=== PATIENT | female | born 1960 | race Caucasian/White ===

== ENCOUNTER 2025-01-30 23:24 | Observation (INO) | payer OTHER, SELFPAY ==
[2025-01-30 23:32] VITALS: BP 180/80; PULSE 79; TEMP 36.5; O2SAT 100; BMI 22.1
[2025-01-30 23:40] VITALS: O2SAT 97
[2025-01-30 23:43] VITALS: PULSE 77
--- NOTE | 2025-01-30 23:45 | ECG_ITS ---
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
--- NOTE | 2025-01-30 23:46 | ED_ITS ---
HPI HPI - General Adult General Chief complaint: Weakness Stated complaint: abd pain Time Seen by Provider: 01/30/25 23:39 History of Present Illness HPI narrative: past history of anxiety , COPD. Had grand kids over tonight and they were loud After everyone left she felt shaky, weak and her mouth was dry. No chest or abdominal pain. No fever or chills Related Data Previous Rx's ?Medication ?Instructions ?Recorded aspirin 81 mg tablet,delayed 81 mg PO QD 30 days #30 t abs 02/01/25 release atorvastatin 40 mg tablet 40 mg PO QHS 30 days #30 tab s 02/01/25 clopidogrel 75 mg tablet 75 mg PO QD 30 days #30 tabs 02/01/25 hydroxyzine HCl 25 mg tablet 25 mg PO Q8H #90 tabs 01/16 losartan 50 mg tablet 100 mg (2 x 50 mg) PO QD 30 days 02/01/25 #60 tabs metoprolol succinate 50 mg 50 mg PO DAILY #30 tabs 01/16 tablet,extended release 24 hr (Toprol XL) spironolactone 25 mg tablet 12.5 mg (1/2 x 25 mg) PO D AILY #15 02/01/25 (Aldactone) tabs Allergies Allergy/AdvReac Type Severity Reaction Status Date / Time No Known Drug Allergies Allergy Verified 01/30/25 23:53 Opioid HPI Opioid Management Most Recent Opioid Data: Last Pain Assessment Today, 14:55 Last ORT Total Score 2 01/31/25, 04:12 Last ORT Risk Category Low Risk 01/31/25, 04:12 Review of Systems ROS Status of ROS 10 or more systems reviewed and unremark able except as noted in history and below [facility] Medical History (Updated 02/01/25 @ 12:00 by JACKIE LEWIS MD) delivery delivered ?O82 - Encounter for delivery without indication (ICD-10) Hypertension ?I10 - Essential (primary) hypertension (ICD-10) Anxiety ?F41.9 - Anxiety disorder, unspecified (ICD-10) Social History Within the past year, how often did you have a drink containing alcohol: never Within the past year, how often did you have six or more drinks on one occasion: never Score interpretation: A score less than 3 is consistent with normal alcohol consumption. Smoking status: Current some day smoker Second hand tobacco smoke exposure: Yes Non-prescribed substance use: denies use Known occupational exposures/hazards: No Highest level of school completed/degree received: some college, no degree Do you want help with school or training: No Little interest or pleasure in doing things: not at all Feeling down, depressed, or hopeless: not at all Gender Identity: female Exam Constitutional Vital Signs, click to edit/add: Last Vital Signs Temp 97.8 F 02/01/25 11:59 Pulse 70 02/01/25 14:00 Resp 20 02/01/25 11:59 BP 154/79 H 02/01/25 11:59 Pulse Ox 94 L 02/01/25 11:59 O2 Del Method Room Air 02/01/25 11:59 Common normals: average body habitus, oriented x3, no limitations, healthy appearing, alert and well nourished Eye Common normals: EOMs intact bilaterally and conjunctivae normal Respiratory Common normals: normal respiratory effort, no retractions, no use of accessory muscles and clear to auscultation bilaterally Cardio Common normals: regular rate, regular rhythm, S1 normal heart sound and S2 normal heart sound GI Common normals: Normal to inspection, nondistended, normoactive bowel sounds present, soft to palpation and non-tender Extremity Common normals: normal to inspection and full ROM Neuro Common normals: oriented x3, CN's II-XII intact bilaterally, moves all extremities and no focal motor deficits Psych Speech: normal speech Mood and affect: anxious Course Vital Signs Vital signs: Vital Signs Temperature 97.7 F 01/30/25 23:32 Pulse Rate 79 01/30/25 23:32 Respiratory Rate 166 H 01/30/25 23:32 Blood Pressure 180/80 H 01/30/25 23:32 Pulse Oximetry 100 01/30/25 23:32 Oxygen Delivery Method Room Air 01/30/25 23:32 Temperature 97.8 F 02/01/25 11:59 Pulse Rate 70 02/01/25 14:00 Respiratory Rate 20 02/01/25 11:59 Blood Pressure 154/79 H 02/01/25 11:59 Pulse Oximetry 94 L 02/01/25 11:59 Oxygen Delivery Method Room Air 02/01/25 11:59 Medical Decision Making MDM Narrative Medical decision making narrative: past history of anxiety and daily smoker. Takes prn BP medication but she is not sure what it is. After grand kids left tonight she felt weak, dry mouth and shaky. No fever, chills, chest pain or dyspnea. Arrives with BP 204/101. Exam otherwise neg. EKG NSR with nonspecific T changes. labs with mild elevated Troponin at 78.7. Repeat Troponin at 3 hours 86.5. Discussed with the hospitalist Lab Data Labs: Lab Results 01/30/25 01/30/25 01/31/25 Range/Units 23:35 23:40 02:40 WBC 8.1 (4.0-11.0) 10^3/uL RBC 4.66 (4.20-5.40) 10^6/uL Hgb 14.3 (12.0-16.0) g/dL Hct 42.7 (36.0-48.0) % MCV 91.6 (81.0-99.0) fL MCH 30.7 (26.7-34.0) pg MCHC 33.5 (29.9-35.2) g/dL RDW 12.4 (11.0-15.0) % Plt Count 211 (150-450) 10^3/uL MPV 12.4 (9.5-13.5) fL Neut % (Auto) 59.9 (43.0-75.0) % Lymph % (Auto) 29.0 (20.5-60.0) % Humphreys % (Auto) 8.9 (1.7-12.0) % Eos % (Auto) 1.4 (0.9-7.0) % Baso % (Auto) 0.6 (0.2-2.0) % Neut # (Auto) 4.8 (1.4-6.5) 10^3/uL Lymph # (Auto) 2.3 (1.2-3.8) 10^3/uL Humphreys # (Auto) 0.7 (0.3-0.8) 10^3/uL Eos # (Auto) 0.1 (0.0-0.7) 10^3/uL Baso # (Auto) 0.1 (0.0-0.1) 10^3/uL Abs Immat Gran (auto) 0.02 (0.00-0.03) 10^3/uL Imm/Tot Granulo (auto) 0.2 (0.0-0.5) % Sodium 136 (136-145) mmol/L Potassium 3.4 L (3.5-5.1) mmol/L Chloride 100 (98-107) mmol/L Carbon Dioxide 27.1 (21.0-32.0) mmol/L Anion Gap 12.3 BUN 15.0 (7.0-18.0) mg/dL Creatinine 1.03 H (0.55-1.02) mg/dL Est GFR ( Amer) >60 (>=60 mL/min/1.73m^2) Est GFR (Non-Af Amer) 54 L (>=60 mL/min/1.73m^2) BUN/Creatinine Ratio 14.6 Glucose 103 (74-106) mg/dL Calcium 9.0 (8.5-10.1) mg/dL Troponin I High Sens 78.7 H* 86.5 H* (4.0-51.3) pg/mL Urine Color Lt. yellow (YELLOW) Urine Clarity Clear (CLEAR) Urine pH 6.5 (5.0-9.0) Ur Specific [place] <=1.005 A (1.005-1.025) Urine Protein Negative (NEG/TRACE) mg/dL Urine Glucose (UA) Negative (NEGATIVE) mg/dL Urine Ketones Negative (NEGATIVE) mg/dL Urine Occult Blood Negative (NEGATIVE) Urine Nitrite Negative (NEGATIVE) Urine Bilirubin Negative (NEGATIVE) Urine Urobilinogen 0.2 (0.2-1.0) EU/dL Ur Leukocyte Esterase Negative (NEGATIVE) Urine RBC 0-2 (0-2) #/HPF Urine WBC 0-2 A (NONE SEEN) #/HPF Ur Squamous Epith Cells Rare (NONE/RARE) #/LPF Urine Crystals None seen (None Seen) #/HPF Urine Bacteria Trace A (NONE SEEN) #/HPF Urine Casts None seen (NONE SEEN) #/LPF Urine Mucus None seen (NONE SEEN) Ur Culture Indicated? No Discharge Plan Discharge Chief Complaint: Weakness Clinical Impression: Anxiety, Hypertensive urgency, Elevated troponin Patient Disposition: Admitted as Observation Condition: Good Discharge Date/Time: 01/31/25 03:56
[2025-01-30 23:50] VITALS: PULSE 78; O2SAT 100
[2025-01-31] VITALS (38 sets, daily range): BP systolic 106–216; BP diastolic 76–102; PULSE 60–91; TEMP 36.5–37; O2SAT 93–100
[2025-01-31 00:02] LABS: Hematocrit 42.7 % (36.0-48.0); Hemoglobin 14.3 g/dL (12.0-16.0); Immature Granulocytes Abs Auto 0.02 10^3/uL (0.00-0.03); Immature Granulocytes Pct Auto 0.2 % (0.0-0.5); Lymphocytes Absolute Auto 2.3 10^3/uL (1.2-3.8); Mean Corpuscular HGB Conc 33.5 g/dL (29.9-35.2); Mean Corpuscular Hemoglobin 30.7 pg (26.7-34.0); Mean Corpuscular Volume 91.6 fL (81.0-99.0); Platelet Count 211 10^3/uL (150-450); Red Blood Count 4.66 10^6/uL (4.20-5.40); White Blood Count 8.1 10^3/uL (4.0-11.0)
[2025-01-31 00:04] LABS: Glucose Urine UA NEGATIVE (NEGATIVE)
[2025-01-31 00:11] LABS: Cast Seen? NONE SEEN #/LPF (NONE SEEN); Crystals Seen? None Seen #/HPF (None Seen); Urine Culture Indicated NO
[2025-01-31 00:14] LABS: Anion Gap 12.3; Blood Urea Nitrogen 15.0 mg/dL (7.0-18.0); Calcium 9.0 mg/dL (8.5-10.1); Carbon Dioxide 27.1 mmol/L (21.0-32.0); Chloride 100 mmol/L (98-107); Estimated GFR (African America >60 (>=60 mL/min/1.73m^2); Estimated GFR (Non-African Ame 54 (>=60 mL/min/1.73m^2); Glucose 103 mg/dL (74-106); Potassium 3.4 mmol/L (3.5-5.1); Sodium 136 mmol/L (136-145)
[2025-01-31] MEDS: HYDROXYZINE PAMOATE 25 MG CAPSULE 50 MG PO (00:21)
[2025-01-31] MEDS: 0.9 % SODIUM CHLORIDE 1,000 ML 999 ML IV (00:21)
[2025-01-31] MEDS: CLONIDINE HCL 0.1 MG TABLET PO (00:53)
--- NOTE | 2025-01-31 03:00 | XR_ITS ---
[address] [address] Patient Name: CEDRICK MORENO MRN: [id number] date: 1960 Sex: F Assigned Patient Location: ER Current Patient Location: [place] Accession/Order Number: [id number] Exam Date: 01/31/2025 03:08 Report Date: 01/31/2025 08:34 At the request of: YULIANA FABIAN MD Procedure: XR chest 1V XR chest 1V 01/31/2025 3:14 AM SIGNS AND SYMPTOMS: ^COPD PROTOCOL: Frontal radiograph of the chest COMPARISON: None FINDINGS: The trachea is midline. The heart and mediastinal structures are within normal limits. The lung parenchyma is clear. The bony thorax is intact. Degenerative changes are noted in the shoulders and thoracic spine. XR/XR chest 1V IMPRESSION: No acute cardiopulmonary pathology. Impression dictated by: Gibson Francis M.D. 01/31/2025 8:34 AM Dictation Location: [facility] Electronically authenticated by: [id number] Y Date: 01/31/2025 08:34
[2025-01-31 07:00] LABS: Hematocrit 37.2 % (36.0-48.0); Hemoglobin 12.5 g/dL (12.0-16.0); Immature Granulocytes Abs Auto 0.01 10^3/uL (0.00-0.03); Immature Granulocytes Pct Auto 0.2 % (0.0-0.5); Lymphocytes Absolute Auto 1.7 10^3/uL (1.2-3.8); Mean Corpuscular HGB Conc 33.6 g/dL (29.9-35.2); Mean Corpuscular Hemoglobin 30.9 pg (26.7-34.0); Mean Corpuscular Volume 91.9 fL (81.0-99.0); Platelet Count 170 10^3/uL (150-450); Red Blood Count 4.05 10^6/uL (4.20-5.40); White Blood Count 6.0 10^3/uL (4.0-11.0)
--- NOTE | 2025-01-31 07:00 | ECG_ITS ---
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 Measurements Intervals [place] Rate: 70 P: 69 NM: 171 QRS: 58 QRSD: 81 T: 62 QT: 420 QTc: 456 Interpretive Statements SINUS RHYTHM POSSIBLE LEFT ATRIAL ENLARGEMENT [-0.1mV P WAVE IN V1/V2] Borderline ECG Compared to ECG 01/30/2025 23:43:02 Left ventricular hypertrophy no longer present ABNORMAL T WAVES, INFERIOR LEADS no longer present Electronically Signed On 01-31-2025 9:32:29 EST by SRIDHAR MEDELLIN M.D.
[2025-01-31 07:16] LABS: Alanine Aminotransferase 17 U/L (14-59); Albumin Globulin Ratio 0.8; Albumin Level 2.9 g/dL (3.4-5.0); Alkaline Phosphatase 51 U/L (46-116); Anion Gap 13.0; Aspartate Amino Transferase 14 U/L (15-37); Blood Urea Nitrogen 12.0 mg/dL (7.0-18.0); Calcium 8.4 mg/dL (8.5-10.1); Carbon Dioxide 23.8 mmol/L (21.0-32.0); Chloride 108 mmol/L (98-107); Cholesterol 236 mg/dL (<=200); Estimated GFR (African America >60 (>=60 mL/min/1.73m^2); Estimated GFR (Non-African Ame >60 (>=60 mL/min/1.73m^2); Globulin 3.5 g/dL; Glucose 90 mg/dL (74-106); HDL Cholesterol 38 mg/dL (40-60); Potassium 3.8 mmol/L (3.5-5.1); Sodium 141 mmol/L (136-145); Total Protein 6.4 g/dL (6.4-8.2); Triglycerides 134 mg/dL (<=150); VLDL CHOLESTEROL 26.8 mg/dL
[2025-01-31] MEDS: METOPROLOL TARTRATE 25 MG TABLET PO ×2 (08:25→21:02)
[2025-01-31] MEDS: LABETALOL HCL 20 MG/4 ML SYRINGE 10 MG IVP (08:25)
[2025-01-31] MEDS: LOSARTAN POTASSIUM 50 MG TABLET PO ×2 (08:25→12:40)
[2025-01-31] MEDS: ASPIRIN 325 MG TABLET PO (08:25)
--- NOTE | 2025-01-31 08:50 | CT_ITS ---
The [address] [address] Patient Name: CEDRICK MORENO MRN: [id number] date: 1960 Sex: F Assigned Patient Location: Current Patient Location: Accession/Order Number: [id number] Exam Date: 01/31/2025 09:53 Report Date: 01/31/2025 10:45 At the request of: KEITH MAHONEY MD Procedure: CT angio chest CT angio chest 01/31/2025 10:08 AM SIGN AND SYMPTOMS: HTN urgncy, wide medistinm r/o aneurysmal/dissecti CONTRAST: 100 mL of intravenous Omnipaque 350 TECHNIQUE: Multidetector CT axial slices of the chest were obtained with IV contrast. Multiplanar reformats were performed and viewed on a separate workstation and reviewed to further define anatomy and possible pathology. CT was performed with one or more of the following dose reduction techniques: Automated exposure control, adjustment of the mA and/or kV according to patient size, or use of iterative reconstruction technique. COMPARISON: None. FINDINGS: Lower neck: Thyroid gland within normal limits, no supraclavicle adenopathy. Vessels: Atherosclerotic changes are noted in the thoracic aorta, origins of the great vessels, and coronary arteries. There is no evidence of pulmonary embolism. Mediastinum and El[place]: Within normal limits. Heart: There is cardiomegaly. No pericardial effusion. Airways: Within normal limits Lungs: There is a 6 mm noncalcified nodule in the left lower lobe. There is a 5 mm noncalcified nodule in the right lower lobe posteriorly. There is a pleural-based 3 mm nodule which is noncalcified in the right lower lobe posteriorly and laterally. Emphysematous changes are noted. Mild dependent airspace opacities are noted presumably representing atelectasis.. Pleura: Within normal limits. Chest Wall: Within normal limits. Upper Abdomen: There is partial visualization of a cystic structure in the right upper quadrant beneath the liver which is of uncertain etiology. There is renal cortical atrophy. 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 Bones: Degenerative changes are noted in the thoracic spine. CT/CT angio chest IMPRESSION: No pulmonary embolism. There is a 6 mm noncalcified nodule in the left lower lobe. There is a 5 mm noncalcified nodule in the right lower lobe posteriorly. There is a pleural-based 3 mm nodule which is noncalcified in the right lower lobe posteriorly and laterally. Follow-up per Fleischner Society guidelines is recommended. Emphysematous changes are noted. 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 Impression dictated by: Gibson Francis M.D. 01/31/2025 10:45 AM Dictation Location: [place] [address] Electronically authenticated by: [id number] Y Date: 01/31/2025 10:45
--- NOTE | 2025-01-31 09:52 | PM.HP ---
HPI H&P: HPI History of Present Illness Chief complaint: abd pain, elevated trop Narrative: Mrs. Fink is a 64-year-old female with a known history of hypertension. Patient stated that she does not take her medications. Patient is a smoker. She is cutting down but she has been a smoker for 40 years. Patient came in yesterday complaining of shakiness and anxiety after her kids and grand children came to the house and caused a lot of commotion, nose and disruption. Patient reported that it feels like an anxiety attack. She has had a previous anxiety attack before and it feels the same. Patient strongly denies having any chest pain or shortness of breath. She was found to have hypertensive urgency. Blood pressure at some point was 211 oh over 102. Inpatient the patient was found to have elevated troponin at 78 which went up to 86. I have accepted to observe patient at [facility], having serial troponin and EKG I requested repeat troponin at 7:00 which came back elevated at 97. Patient continues to deny having any chest pain or discomfort. No abdominal pain. No shortness of breath. Opioid HPI Opioid Management Most Recent Pain and Opioid Data: Last Pain Assessment Today, 08:33 Last ORT Total Score 2 Today, 04:12 Last ORT Risk Category Low Risk Today, 04:12 Review of Systems ROS Status of ROS 10 or more systems reviewed and unremarkable except as noted in history and below [facility] Medical History (Updated 01/31/25 @ 07:37 by Kristin Bowles) delivery delivered ?O82 - Encounter for delivery without indication (ICD-10) Hypertension ?I10 - Essential (primary) hypertension (ICD-10) Anxiety ?F41.9 - Anxiety disorder, unspecified (ICD-10) Social History (Updated 01/31/25 @ 04:25 by Kristin Bowles) Within the past year, how often did you have a drink containing alcohol: never Within the past year, how often did you have six or more drinks on one occasion: never Score interpretation: A score less than 3 is consistent with normal alcohol consumption. Smoking status: Current some day smoker Second hand tobacco smoke exposure: Yes Non-prescribed substance use: denies use Known occupational exposures/hazards: No Highest level of school completed/degree received: some college, no degree Do you want help with school or training: No Little interest or pleasure in doing things: not at all Feeling down, depressed, or hopeless: not at all Gender Identity: female Meds Home Medications and Allergies Home Medications ?Medication ?Instructions ?Recorded ?Confirmed ?Type No Known Home Medications 01/30/25 01/30/25 History Allergies Allergy/AdvReac Type Severity Reaction Status Date / Time No Known Drug Allergies Allergy Verified 01/30/25 23:53 Exam Narrative Exam Narrative: Patient is sitting in bed. No distress. Cachectic and frail in appearance. Bitemporal muscle wasting. Upper and lower extremities muscle wasting and atrophy. Neck is supple. No JVD. No carotid bruit. Chest is clear, heart is regular. Abdomen is soft. No tenderness, no guarding, rebound Symmetrical radial pulses. Lower extremities no edema Neurologically the patient is intact. Constitutional Vital Signs, click to edit/add: Last Vital Signs Temp 98.0 F 01/31/25 08:32 Pulse 83 01/31/25 08:32 Resp 18 01/31/25 04:13 BP 179/95 H 01/31/25 08:32 Pulse Ox 95 01/31/25 08:32 O2 Del Method Room Air 01/31/25 08:32 Results Labs Labs: Short CBC 01/30/25 01/31/25 Range/Units 23:40 06:49 WBC 8.1 6.0 (4.0-11.0) 10^3/uL Hgb 14.3 12.5 (12.0-16.0) g/dL Hct 42.7 37.2 (36.0-48.0) % Plt Count 211 170 (150-450) 10^3/uL BMP 01/30/25 01/31/25 23:40 06:49 Sodium 136 141 Potassium 3.4 L 3.8 Chloride 100 108 H Carbon Dioxide 27.1 23.8 BUN 15.0 12.0 Creatinine 1.03 H 0.89 Glucose 103 90 Calcium 9.0 8.4 L Liver Function 01/31/25 Range/Units 06:49 Total Bilirubin 0.3 (0.2-1.0) mg/dL AST 14 L (15-37) U/L ALT 17 (14-59) U/L Alkaline Phosphatase 51 (46-116) U/L Albumin 2.9 L (3.4-5.0) g/dL Urine 01/30/25 Range/Units 23:35 Urine Color Lt. yellow (YELLOW) Urine Clarity Clear (CLEAR) Urine pH 6.5 (5.0-9.0) Ur Specific [place] <=1.005 A (1.005-1.025) Urine Protein Negative (NEG/TRACE) mg/dL Urine Glucose (UA) Negative (NEGATIVE) mg/dL Assessment and Plan Assessment and Plan (1) Hypertensive urgency: (2) Elevated troponin: (3) Anxiety: Plan Hypertensive urgency Patient stated that she is supposed to be on blood pressure medication but does not take it Likely essential hypertension and less likely secondary hypertension. I started patient on beta-kathryn and losartan. As needed labetalol and hydralazine. If patient continues to have uncontrolled hypertension despite treatment with 2?3 agents then workup for secondary hypertension will need to take place. Slight widening of the mediastinum. Symmetrical radial pulses. Symmetrical and equal blood pressure on both side. Less likely possibility aortic dissection but patient may have aneurysmal aortic dilatation. Requested CT chest. Elevated troponin. Patient strongly denied having any chest pain or shortness of breath. No prior history of heart disease. EKG does not show ST elevation depression. (ER EKG showed inverted T waves in 1-lead but follow-up EKG showed complete reversal. Likely lead misplacement. ) This elevated troponin is probably secondary to hypertensive urgency and less likely to represent ACS. Patient does have risk factors for CAD including hypertension and tobacco addiction. Patient may have underlying CAD. I requested echocardiogram to see if patient has any regional motion abnormalities. I started patient on aspirin, statin and Lovenox. I started patient on BP meds including beta-kathryn and ARB as listed above. I discussed the case briefly with department head college or university at [facility] Dr Yanes. He is in agreement not to sexton and to proceed with invasive ischemic evaluation. He is recommending continue to manage her hypertensive urgency and take a look at the echocardiogram tomorrow. He is in agreement for patient to stay at [facility] and have cardiology consultation to [facility] [place]. Tobacco addiction. Patient has been a smoker for 40 years. Patient stated that she cutting down. Continue counseling and education to quit alcohol completely. Cachexia, frailty, muscle wasting, moderate protein calorie mentation. Albumin is 2.9. 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 Ordered CT chest to rule out aortic aneurysmal dilatation and also to a look at the lung parenchyma and rule out underlying malignancy. I would recommend the patient to have yearly low-dose radiation CAT scan of the chest to screen for lung cancer. Furthermore I would recommend patient to have cachexia and weight loss investigation to be handled in the outpatient setting by PCP including but not limited to needing to have colonoscopy, EGD, breast exam, mammography and pelvic exam. Chronic, subacute medical conditions not listed above, abnormal labs and imaging, incidental findings seen on labs and or imaging. These would need to be addressed. Could be addressed later on or in the outpatient setting by PCP collaboration with other needed outpatient providers when time and condition are appropriate.
[2025-01-31] MEDS: LABETALOL HCL 20 MG/4 ML SYRINGE 5 MG IVP (10:13)
--- NOTE | 2025-01-31 11:16 | PM.EN ---
Event Note Event Note: CT chest does not show aortic dissection or pulmonary embolism. Positive for multiple lung nodules. Given her long history of smoking this will need to be monitored closely in the outpatient setting. Recommend repeat CT chest in 6 months to be arranged by PCP. 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 I would recommend referral to vascular postdischarge. She may need to have celiac artery stenting
[2025-01-31] MEDS: LORAZEPAM 1 MG TABLET PO ×2 (12:40→21:50)
[2025-01-31] MEDS: HYDRALAZINE HCL 20 MG/ML VIAL 10 MG IVP (19:36)
[2025-01-31] MEDS: ATORVASTATIN CALCIUM 40 MG TABLET PO (21:50)
[2025-02-01] VITALS (13 sets, daily range): BP systolic 98–173; BP diastolic 59–84; PULSE 58–70; TEMP 36.5–36.7; O2SAT 94–96
--- NOTE | 2025-02-01 03:38 | CA_ITS ---
Patient Name: CEDRICK MORENO MR#: [id number] : 1960 Exam Date: 02/01/2025 Ordering Doctor: KEITH MAHONEY ECHOCARDIOGRAM REPORT PROCEDURE: CA ECHO DOPPLER COMPLETE INDICATIONS: CAD, HTN urgency COMPARISON: None. DESCRIPTION: COMPLETE ECHOCARDIOGRAM Real-time transthoracic echocardiography with 2D, M-mode, spectral and color flow Doppler performed. QUALITY: Technical quality was good. LEFT VENTRICLE: Normal chamber size. Moderately increased left ventricular wall thickness. Sigmoid septum. LV EF: Global left ventricular systolic function is normal. Visual estimation of left ventricular ejection fraction is 60-65%. No significant wall motion abnormalities. DIASTOLIC: Diastolic function is indeterminate. ATRIAL SEPTUM: Lipomatous hypertrophy of the interatrial septum. Aneurysmal atrial septum. LEFT ATRIUM: Normal chamber size. RIGHT ATRIUM: Mild dilatation. RIGHT VENTRICLE: Normal chamber size. Normal right ventricular systolic function. TRICUSPID VALVE: Normal mobility and thickness. No stenosis with trivial regurgitation. No evidence of pulmonary hypertension. RVSP 29mmHg MITRAL VALVE: Normal mobility and thickness. No evidence of mitral valve stenosis. There is no mitral annular calcification. Trivial mitral regurgitation. AORTIC VALVE: Normal trileaflet appearance. Mildly calcified aortic valve. Mildly diminished mobility. Doppler velocity suggests no significant aortic valve stenosis. DVI 0.55, TARA 1.7cm2, Vmax 2.0m/s, Peak/mean gradient 16/8mmHg. Mild to moderate aortic regurgitation. AORTIC ROOT: Normal diameter and appearance. Measuring 3.4cm. PULMONIC VALVE: Normal thickness and mobility. No stenosis. Trivial regurgitation. PERICARDIUM: No evidence of pericardial effusion. IVC: Collapses with inspiration. Normal size. STRAIN: Global peak strain (4CH) -14.1%, (2H) -11.3, (APLAX) -15.9%, Global longitudinal strain (average) -13.8%. These measurements are abnormally low. No prior studies to compare. CONCLUSION: 1. Global left ventricular systolic function is normal; visually estimated ejection fraction is 60 to 65% 2. Normal right ventricular size and systolic function 3. Diastolic function is indeterminate 4. Moderate left ventricular hypertrophy 5. The right atrium is mildly dilated 6. Mild to moderate aortic valve regurgitation Adult Echocardiography Procedure Report Left Ventricle LVEDD (3.7 - 5.6 cm): 3.76 cm LVESD (2.2 - 4.0 cm): 2.58 cm LVIVS thickness (0.6 - 1.2 cm): 1.74 cm LVPW thickness (0.5 - 1.0 cm): 1.21 cm e': 0.05 m/s E - e': 9.61 LVOT Max Gradient: 5.03 mm[Hg] LVOT Area (cm2): 1.12 m/s Peak Velocity (LVOT): 1.12 m/s Mean Velocity (LVOT): 0.69 m/s LVOT Diameter 2.00 cm Left Ventricular Ejection Fraction: 70.10 % Left Atrium LA Volume Index (2D A2C): 34.48 ml/m2 Left Atrium Systolic Dimension: 3.03 cm Mitral Valve MV E to A Ratio: 0.61 Mitral Valve A-Wave Peak Velocity: 0.82 m/s Mitral Valve E-Wave Peak Velocity: 0.50 m/s Right Ventricle RV Internal Diastolic Dimension: 2.69 cm Aorta AO Root Diam: 3.40 cm Ascending Ao Diam: 2.89 cm Aortic Valve AoV Area (Peak Francisco Javier): 1.77 cm2, 1.79 cm2 AoV Area (VTI): 1.64 cm2, 1.66 cm2 Deceleration Glascock: 1.95 m/s2 Pressure Half-Time: 684.22 ms Peak Velocity(Antegrade Flow): 1.96 m/s, 2.01 m/s Peak Gradient(Antegrade Flow): 15.44 mm[Hg], 16.13 mm[Hg] Mean Velocity(Antegrade Flow): 1.35 m/s, 1.28 m/s Mean Gradient(Antegrade Flow): 8.21 mm[Hg], 7.88 mm[Hg] Velocity Time Integral: 41.46 cm, 42.87 cm Tricuspid Valve Peak Velocity (Regurgitant Flow): 2.06 m/s, 2.48 m/s, 2.41 m/s Pulmonic Valve Peak Velocity: 0.78 m/s Peak Gradient: 2.43 mm[Hg], 2.43 mm[Hg] Right Atrium Right Atrium Systolic Pressure: 30.62 ml, 30.62 ml Dictated by: Cameron Rasmussen M.D. on 02/01/2025 at 10:15 Approved by: Cameron Rasmussen M.D. on 02/01/2025 at 10:33
[2025-02-01 05:47] LABS: Anion Gap 11.0; Blood Urea Nitrogen 20.0 mg/dL (7.0-18.0); Calcium 8.2 mg/dL (8.5-10.1); Carbon Dioxide 24.7 mmol/L (21.0-32.0); Chloride 109 mmol/L (98-107); Estimated GFR (African America >60 (>=60 mL/min/1.73m^2); Estimated GFR (Non-African Ame 59 (>=60 mL/min/1.73m^2); Glucose 95 mg/dL (74-106); Potassium 3.7 mmol/L (3.5-5.1); Sodium 141 mmol/L (136-145)
[2025-02-01] MEDS: ASPIRIN 325 MG TABLET PO (08:37)
[2025-02-01] MEDS: METOPROLOL TARTRATE 25 MG TABLET PO (08:37)
[2025-02-01] MEDS: LOSARTAN POTASSIUM 50 MG TABLET 100 MG PO (08:38)
--- NOTE | 2025-02-01 08:45 | CM.NOTE ---
Rounds made with Dr. Coombs, discussed plan of care with pt. Pt will see cardiology today for further recommendations and discharge planning. Pt is OBS status. Dr. Coombs will re-evaluate pt this afternoon for discharge.
[2025-02-01] MEDS: LORAZEPAM 1 MG TABLET PO (10:01)
[2025-02-01] MEDS: HYDRALAZINE HCL 20 MG/ML VIAL 10 MG IVP (10:01)
--- NOTE | 2025-02-01 10:53 | PM.PN ---
Progress Note: Subjective Subjective Interval history: Patient was seen and evaluated this morning, she is currently laying in bed with head of bed slightly elevated, her daughter was present at bedside. I did review her entire hospitalization with her including the admitting symptoms such as her anxiety and shakes . I did review her imaging with her in regards to the nodules and various areas of calcification seen within her vasculature. Patient denies any symptoms of chest pain this morning, she denies any chest pain throughout her entire hospitalization, I did review the plan with her today regarding her echocardiogram and cardiology valuation. She was slightly tearful towards the end of our conversation, she was asking about her anxiety medication and did explain to her that it is ordered on an as needed basis and that is available if she needs it. She did request for it from the RN shortly after leaving the room. I stop by after rounds, she was drinking a coffee at the her anxiety medication was administered and she did note she is feeling much better about everything. Exam Narrative Exam Narrative: General: Awake alert, no acute distress, she appears comfortable at the beginning of the exam however towards the end of the conversation she became quite tearful HEENT: moist mucous membranes CVS: regular rate and rhythm, no murmurs appreciated. Respiratory: clear to auscultation bilaterally, no wheezing or crackles, symmetric expansion GI: soft, nondistended, nontender, positive bowel sounds Extremity: moves all extremities, no restrictions of movements, no calf tenderness, no edema Neuro: AOx3, CN II-VII intact. Moves all extremities in all planes of motion. Constitutional Vital Signs, click to edit/add: Last Vital Signs Temp 97.7 F 02/01/25 07:48 Pulse 58 L 02/01/25 09:58 Resp 20 02/01/25 07:48 BP 171/78 H 02/01/25 10:01 Pulse Ox 94 L 02/01/25 07:48 O2 Del Method Room Air 02/01/25 07:48 Progress Note: Objective Labs Labs: [facility] 02/01/25 04:46 Sodium 141 Potassium 3.7 Chloride 109 H Carbon Dioxide 24.7 BUN 20.0 H Creatinine 0.96 Glucose 95 Calcium 8.2 L Progress Note: A&P Assessment and Plan (1) Hypertensive urgency: Assessment and Plan: ? She is unsure which medication she was taking previously, she reports stopping her antihypertensives roughly 3 years ago when she went through a divorce ? Admitting blood pressure Was above 200 systolic ? She was subsequently started on metoprolol and losartan ? We will await results of echocardiogram prior to starting any further agents as the ejection fraction and wall motion may help guide further antihypertensive treatment (2) Elevated troponin: Assessment and Plan: ? She had denied chest pain since admission ? EKG without any signs of ischemia injury or infarction ? Her LILIAM risk score is 2 for elevated troponin and risk factors ? Elevated troponin likely secondary to hypertension, type II NSTEMI ? Echocardiogram pending today ? Cardiology on consult for further recommendations ? Checking A1c (3) Anxiety: Assessment and Plan: ? Has been a long-term problem, continue her Ativan twice daily ? She is requesting for a prescription for her anxiety medication on discharge ? I will initiate her on Vistaril scheduled to try to mitigate further Ativan need (4) Celiac artery atherosclerosis: Assessment and Plan: ? Seen on CT scan Of her chest on January 31, recommend outpatient follow-up with vascular surgery ? Continue aspirin 81 mg daily (5) Tobacco abuse: Assessment and Plan: Reports 1 pack of cigarettes lasts 2 to 3 weeks and she has been attempting to cut back, she has a roughly 40-year smoking history (6) Protein calorie malnutrition: Assessment and Plan: ? Thin, frail, she has some temporal muscle wasting and overall muscle mass is down ? Her albumin was low January 31 ? Her BMI is 20, we do not have any prior weights to trend her weight loss ? Encourage oral intake, will add boost shakes 3 times daily with meals (7) Lung nodules: Assessment and Plan: ? These were also seen on the CT scan from chest on January 31 ? 6 mm noncalcified nodule left lower lobe, 5 mm noncalcified nodule in right lower lobe posteriorly, pleural-based 3 mm nodule which is noncalcified in the right lower lobe ? Recommend follow-up with repeat chest CT in the future Plan ? DVT prophylaxis addressed ? Regular diet ? Full code
--- NOTE | 2025-02-01 11:51 | PM.CACN ---
History of Present Illness History of Present Illness Consult date: 02/01/25 Requesting physician: Abdulkadir Escobedo Chief complaint: abd pain, elevated trop Narrative: Mrs. Fink presented to [facility] with overwhelming feeling of anxiety. Too many people in house . Says her anxiety began with marital issues, now . She denies chest pain or SOB at any time[place] able to walk dog. Carries groceries in house without CP or sOB. Review of Systems ROS Status of ROS 10 or more systems reviewed and unremarkable except as noted in history and below [facility] Medical History (Updated 02/01/25 @ 12:00 by JACKIE LEWIS MD) delivery delivered ?O82 - Encounter for delivery without indication (ICD-10) Hypertension ?I10 - Essential (primary) hypertension (ICD-10) Anxiety ?F41.9 - Anxiety disorder, unspecified (ICD-10) Social History Within the past year, how often did you have a drink containing alcohol: never Within the past year, how often did you have six or more drinks on one occasion: never Score interpretation: A score less than 3 is consistent with normal alcohol consumption. Smoking status: Current some day smoker Second hand tobacco smoke exposure: Yes Non-prescribed substance use: denies use Known occupational exposures/hazards: No Highest level of school completed/degree received: some college, no degree Do you want help with school or training: No Little interest or pleasure in doing things: not at all Feeling down, depressed, or hopeless: not at all Gender Identity: female Meds Home Medications and Allergies Home Medications ?Medication ?Instructions ?Recorded ?Confirmed ?Type No Known Home Medications 01/30/25 01/30/25 History Allergies Allergy/AdvReac Type Severity Reaction Status Date / Time No Known Drug Allergies Allergy Verified 01/30/25 23:53 Exam Constitutional Vital Signs, click to edit/add: Last Vital Signs Temp 97.7 F 02/01/25 07:48 Pulse 58 L 02/01/25 09:58 Resp 20 02/01/25 07:48 BP 171/78 H 02/01/25 10:01 Pulse Ox 94 L 02/01/25 07:48 O2 Del Method Room Air 02/01/25 07:48 Documenting provider has reviewed patient's vital signs: yes Common normals: no apparent distress and oriented x3 General appearance: cooperative Nutritional appearance: cachectic (thin white female) Neck & C-Spine Common normals: full ROM and no lymphadenopathy Carotids: normal carotid upstroke Chest Common normals: inspection of chest normal Respiratory Common normals: normal respiratory effort, no retractions and no use of accessory muscles Effort & inspection: able to speak in complete sentences Auscultation: clear to auscultation bilaterally Cardio Common normals: S1 normal heart sound, S2 normal heart sound and no murmurs (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 BP L calf 148/72, unable to read BP RLE x 3 Extremity Common normals: no calf tenderness and no pedal edema General: other findings (Has two small ecchymotic lesions R 2 and 3 toes) Neuro Common normals: oriented x3 Psych Mood and affect: anxious and other Results Labs and Meds Lab results: Comprehensive Metabolic Panel 02/01/25 Range/Units 04:46 Sodium 141 (136-145) mmol/L Potassium 3.7 (3.5-5.1) mmol/L Chloride 109 H (98-107) mmol/L Carbon Dioxide 24.7 (21.0-32.0) mmol/L BUN 20.0 H (7.0-18.0) mg/dL Creatinine 0.96 (0.55-1.02) mg/dL Glucose 95 (74-106) mg/dL Calcium 8.2 L (8.5-10.1) mg/dL Intake and Output 01/31/25 02/01/25 02/01/25 23:59 07:59 15:59 Intake Total 480 / 480 Balance 480 / 480 Intake: Oral 480 / 480 Other: # Voids 2 1 Imaging and Cardiology Echo: report reviewed and image reviewed ECG results: report reviewed and image reviewed EKG Interpretation EKG: WNL Assessment and Plan Assessment and Plan (1) Hypertensive urgency: (2) Elevated troponin: (3) Anxiety: (4) Celiac artery atherosclerosis: (5) Tobacco abuse: (6) Protein calorie malnutrition: (7) Lung nodules: (8) Hypertensive heart disease: Plan Mrs. Fink has asymptomatic elevation in troponin in setting of panic attack, high blood pressure and evidence of hypertensive heart disease (LVH moderate by echo). She likely has long-standing, untreated high blood pressure and the hypertensive heart disease may be the cause of her HS troponin elevation with severe uncontrolled hypertension. Agree with plan of losartan and metoprolol, and addition of low dose aldactone for BP control. I think it is acceptable to allow her to be discharged and we will arrange a follow up stress test to see if there is any CAD beyond her hypertensive heart disease and whether this was a NSTEMI (I believe, if so, it is a Type 2 event, see above.) For now would add plavix to aspirin for possibility that it is a Type 2 NSTEMI. She likely has an iliac artery stenosis given decreased RLE pulses and calf BP and we will also arrange an outpatient CTA of RLE and will follow up on this and the celiac stenosis (most of which are asymptomatic and can be managed conservatively). I will plan to see her in the office after stress test and CTA.
[2025-02-01] MEDS: CLOPIDOGREL BISULFATE 75 MG TABLET PO (13:27)
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
--- NOTE | 2025-02-01 14:26 | CM.NOTE ---
Spoke with pt and daughter regarding PCP, both are in agreement to f/u with . SW called Dr. Velasco's office and left information. CM or SW will call pt at home with appointment. Pt also provided daughter's number for contact Eqfvsh-[phone]. Called Skills Instructor office also to give daughter's contact to schedule CTA and stress test. Pt states her phone is not working.
--- NOTE | 2025-02-01 15:21 | SWNOTE1 ---
LUISA did call Dr. Velasco's office to see if she could accept as a new patient. LUISA spoke to Sarmad. Sarmad took down the information and will reach out to Dr. Velasco and call LUISA back.
--- NOTE | 2025-02-01 15:37 | SWNOTE1 ---
LUISA spoke to Dr. Velasco directly and she is able to accept patient. Dr. Velasco will have her radiology scheduler call to set up time.
--- NOTE | 2025-02-01 16:03 | SWNOTE1 ---
LUISA called pt's daughter, Geno and notified her of new pt apt with Dr. Breonna Velasco on 02/08 at 11:00. LUISA provided her with the phone number for Dr. Velasco's office and Geno is familiar with where the office is located. Geno voiced appreciation to all staff here at [facility], from the ED to the med/surge nurses/aides.
--- NOTE | 2025-02-02 12:33 | P.DS_ITS ---
DS: Providers Provider Date of admission: 01/31/25 03:21 Primary care physician: Non-Staff Physician, Consults: 01/31/25 10:04 Consult to Cardiology Routine Reason for consultation: Elevated Trop Anticipated date of discharge: 02/01/25 DS: Diagnosis Discharge Diagnosis (1) Hypertensive urgency: (2) Elevated troponin: (3) Anxiety: (4) Celiac artery atherosclerosis: (5) Tobacco abuse: (6) Protein calorie malnutrition: (7) Lung nodules: (8) Hypertensive heart disease: DS: Summary Hospital Course Hospital Course: Miss Fink Is a 64-year-old female who was admitted to the hospital the evening of January 30 with a chief complaint of anxiety and shaking. She was found to have elevated blood pressure and elevated troponins and she was subsequent mated the hospital. She was in hypertensive urgency due to not taking her medications, she was started on a beta-kathryn and losartan, her troponins were elevated with no EKG changes, this was discussed with the on-call rounding and backing machine operator at [facility] and recommended keeping in his hospital and having our rounding and backing machine operator evaluate. She had a CT of the chest which was notable for aortic, coronary, and celiac vascular disease. Echocardiogram was ordered. And notable for ejection fraction of 60 to 65% with no evidence of wall motion abnormalities, some diastolic dysfunction was also noted with mild to moderate aortic valve regurgitation. Cardiology recommended outpatient stress test and CT of the leg to rule out any iliac artery disease. She will be seen in the cardiology office after the stress test and CTA are performed and read. Of note, she was having episodes with anxiety while admitted, she may have some degree of PTSD related to her marriage which ended in divorce roughly 3 years ago, she was given Ativan twice daily as needed while admitted. She did ask me for a prescription for anxiety pills upon discharge, I had a long talk with her about the addictive nature of Ativan and stated that I would like to trial her on hydroxyzine 3 times daily and if she can tolerate this then we can avoid any further Ativan use. If the hydroxyzine does not work, I recommend that she follow-up with her PCP which will be arranged upon discharge for further medication. She should also see vascular surgery for her celiac artery stenosis which was noted on the CTA. She was discharged on the medication changes dictated below, I did add spironolactone to her antihypertensive regimen based on her echocardiogram results. Time Spent with Patient Time attestation: Total time spent providing and/or coordinating discharge services: Exam Narrative Exam Narrative: General: Awake alert, no acute distress, she appears comfortable at the beginning of the exam however towards the end of the conversation she became quite tearful HEENT: moist mucous membranes CVS: regular rate and rhythm, no murmurs appreciated. Respiratory: clear to auscultation bilaterally, no wheezing or crackles, symmetric expansion GI: soft, nondistended, nontender, positive bowel sounds Extremity: moves all extremities, no restrictions of movements, no calf tenderness, no edema Neuro: AOx3, CN II-VII intact. Moves all extremities in all planes of motion. Constitutional Vital Signs, click to edit/add: Last Vital Signs Temp 97.8 F 02/01/25 11:59 Pulse 70 02/01/25 14:00 Resp 20 02/01/25 11:59 BP 154/79 H 02/01/25 11:59 Pulse Ox 94 L 02/01/25 11:59 O2 Del Method Room Air 02/01/25 11:59 Discharge Plan Discharge Disposition: Home, Self-Care Condition: Good Discharge Medications: New losartan 50 mg Tablet 100 mg PO QD 30 Days Qty: 60 2RF atorvastatin 40 mg Tablet 40 mg PO QHS 30 Days Qty: 30 2RF clopidogrel 75 mg Tablet 75 mg PO QD 30 Days Qty: 30 2RF aspirin 81 mg Tablet,Delayed Release (Dr/Ec) 81 mg PO QD 30 Days Qty: 30 2RF metoprolol succinate [Toprol XL] 50 mg tablet extended release 24 hr 50 mg PO DAILY Qty: 30 2RF spironolactone [Aldactone] 25 mg tablet 12.5 mg PO DAILY Qty: 15 2RF hydroxyzine HCl 25 mg tablet 25 mg PO Q8H Qty: 90 0RF Print Language: Anguillan Patient Instructions: Metoprolol (By mouth), Spironolactone (By mouth), Aspirin (By mouth), Hydroxyzine (By mouth), Losartan (By mouth), Atorvastatin (By mo [facility]), Clopidogrel (By mouth), Hypertensive Crisis (DC) Supervisor Quilting/Correction Warden Instructions: Centralized scheduling will call you with stress test appointment and CTA Forms: Portal Instructions Follow Up Appointments: [facility] Cardiology Mar 10 11:20. [phone] New patient appointment with Dr. Breonna Velasco DO. February 08 at 11:00am Address: [address] [place] [address]. [place] [address] Please arrive 15 minutes early to complete paperwork and bring your Insurance card and Tobacco Packer's License. Discharge Date/Time: 02/01/25 15:53
--- NOTE | 2025-02-02 15:07 | CM.DCFOLLOWU ---
1st attempt 02/02, no answer. Called pt's daughters phone as pt's phone was not working
--- NOTE | 2025-02-03 14:34 | CM.DCFOLLOWU ---
I attempted to call the patients daughter due to patient not having a working number but no answer on 02/03/2025.
--- NOTE | 2025-02-04 11:22 | CM.DCFOLLOWU ---
3rd attempt 02/04/25, no answer
== END 2025-02-01 15:53 | disposition home or self-care (01) ==
LOC: ER 01-31 01:03 → MS 01-31 03:55
PROVIDERS: Admitting Provider Internal Medicine; Emergency Provider Internal Medicine; Visit Provider Internal Medicine
DX: I16.0 Hypertensive urgency (principal); F41.9 Anxiety disorder, unspecified; R79.89 Other specified abnormal findings of blood chemistry; R64 Cachexia; E44.1 Mild protein-calorie malnutrition; R54 Age-related physical debility; I11.9 Hypertensive heart disease without heart failure; T50.996A Underdosing of other drugs, medicaments and biological substances, initial encounter; Z91.148 Patient's other noncompliance with medication regimen for other reason; J98.59 Other diseases of mediastinum, not elsewhere classified; R91.8 Other nonspecific abnormal finding of lung field; I70.8 Atherosclerosis of other arteries; F17.210 Nicotine dependence, cigarettes, uncomplicated; Z68.20 Body mass index [BMI] 20.0-20.9, adult; J44.9 Chronic obstructive pulmonary disease, unspecified; I35.1 Nonrheumatic aortic (valve) insufficiency
CPT/HCPCS: 36415; 71045; 71275; 80048; 80053; 80061; 81001; 84484; 85025; 93005; 93306; 93356; 96374; 96375; 96376; 99285; G0378; J0360; J1920; Q0177; Q9967

== ENCOUNTER 2025-02-15 08:55 | Outpatient (OUT) | payer OTHER, SELFPAY ==
--- OUTSIDE RECORDS SUMMARY | 2025-02-15 08:58 | XMS_ITS | Encounter Summary ---
Author Organization [facility] Address [address] [place] [address] Care Team Providers Care Direct Care Staffer Name Role Phone Unavailable Primary Care Provider Unavailabl e Reason for Referral * Imaging (Routine) - Pending ReviewSpecialtyDiagnoses / ProceduresReferred By ContactReferred To Contact Diagnoses PVD (peripheral vascular disease) Procedures CTA Abdomen Pelvis W IV Contrast Charlie Fish MD [address] [place] [address] Phone: tel: fax: Referral IDStatusReasonStart DateExpiration DateVisits RequestedVisits [id number] Umpfar03/ Encounter Details DateTypeDepartmentCare Team (Latest Contact Info)Szejzsqmrwq54/10/2025Orders Only [facility] [address] [place] [address] Gareth Glory [place] Elevated troponin (Primary Dx); PVD (peripheral vascular disease) Social History Tobacco UseTypesPacks/DayYears UsedDateSmoking Tobacco: Never Assessed CommentsUnknownSex and Gender InformationValueDate RecordedSex Assigned at Not on fileLegal LepItsezv11/29/2022 11:05 PM EDTGender IdentityNot on file Sexual OrientationNot on filedocumented as of this encounter Plan of Treatment DateTypeDepartmentCare Team (Latest Contact Info)Ejkguskhjgz86/17/2025 11:20 AM ESTOffice Visit [facility] [address] [place] [id number] Charlie Fish MD [address] [place] [address] NameTypePriorityAssociated DiagnosesOrder ScheduleLexiscan Stress Myocardial Perfusion ImagingCardiac ServicesRoutine Elevated troponin Expected: 02/01/2025 (Approximate), Expires: 02/01/2027CTA Abdomen Pelvis W IV ContrastImagingRoutine PVD (peripheral vascular disease) Expected: 02/01/2025, Expires: 02/01/2026reatinine, SerumLabRoutine Elevated troponin PVD (peripheral vascular disease) Expected: 02/01/2025 (Approximate), Expires: 02/01/2026documented as of this encounter Visit Diagnoses Diagnosis Elevated troponin- Primary Other abnormal blood chemistry PVD (peripheral vascular disease) Unspecified peripheral vascular disease documented in this encounter
--- OUTSIDE RECORDS SUMMARY | 2025-02-15 08:58 | XMS_ITS | Clinical Summary ---
Author Organization [facility] Address [address] [place] [address] Care Team Providers Care Fixed Income Analyst Name Role Phone Unavailable Primary Care Provider Unavailabl e Encounters DateTypeDepartmentCare RtmjWjtnbrdpxid70/10/2025Orders Only [address] [address] Glory Servin [place] Elevated troponin (Primary Dx); PVD (peripheral vascular disease)from Last 3 Months Social History Tobacco UseTypesPacks/DayYears UsedDateSmoking Tobacco: Never Assessed CommentsUnknownSex and Gender InformationValueDate RecordedSex Assigned at Not on fileLegal FxrAkalrp23/29/2022 11:05 PM EDTGender IdentityNot on file Sexual OrientationNot on file Plan of Treatment DateTypeDepartmentCare Team (Latest Contact Info)Pvuminfcgso20/17/2025 11:20 AM ESTOffice Visit [facility] [address] [place] [address] Charlie Fish MD [address] [place] [phone] Health MaintenanceDue DateLast DoneCommentsCT Jekaqysjpejx09/14/1961Colonoscopy 1960olorectal Cancer Tinhrnpdl77/14/1961FIT-DNA1960FIT1960 FOBT1960Medicare Initial Physical (IPPE)1960 0095Cgpvjlnrbfzbi04/14/1961 Depression Thegqnbov36/14/1973Pap Smear1981Adult Jrvvlit6405/08/1982Cervical Cancer Xlgdjwdsr75/14/1991HPV/Mjsnen7705/08/19901438Jcvjksfvs94/14/2001Zoster Vaccines (1 of 2)2010Influenza Vaccine (#1)2024HIB VaccinesAged OutNo longer eligible based on patient's age to complete this topicHPV VaccinesAged OutNo longer eligible based on patient's age to complete this topicIPV VaccinesAged OutNo longer eligible based on patient's age to complete this topicMeningococcal B VaccineAged OutNo longer eligible based on patient's age to complete this topicMeningococcal VaccineAged OutNo longer eligible based on patient's age to complete this topicPneumococcal Vaccine: Pediatrics (0 to 5 Years) and At-Risk Patients (6 to 64 Years)Aged OutNo longer eligible based on patient's age to complete this topicRotavirus VaccinesAged OutNo longer eligible based on patient's age to complete this topic
--- NOTE | 2025-02-15 09:04 | CT_ITS ---
The [address] [address] Patient Name: CEDRICK MORENO MRN: [id number] date: 1960 Sex: F Assigned Patient Location: LAB Current Patient Location: LAB Accession/Order Number: [id number] Exam Date: 02/15/2025 09:28 Report Date: 02/15/2025 11:35 At the request of: JACKIE LEWIS MD Procedure: CT angio abd aorta runoff CT ABDOMEN PELVIS WITH LOWER EXTREMITY RUNOFF WITH CONTRAST AND 3-D RECONSTRUCTIONS COMPARISON: None CLINICAL DATA: Peripheral vascular disease Spiral images were obtained through the abdomen pelvis and lower extremities following 100 mL of Omnipaque 350. Sagittal, coronal and 3-D volume rendered reconstructions of the aorta, iliac and lower extremity vessels were reviewed. This CT exam was performed using one or more following dose reduction techniques: Automated exposure control, adjustment of the mA and/or kV according to patient size, or use of iterative reconstruction technique. Limited imaging through the lung bases shows a 5 - 6 mm left lower lobe nodule that was also visualized heart recent chest CT from January 31 . A second lower lobe nodule on the comparison is partially imaged on the first section. The distal descending aorta is mildly ectatic. Fatty infiltration of the liver is possible. There is a tiny right hepatic cyst. No calcified gallstones are seen. The common duct is mildly prominent, without choledocholithiasis. The spleen and pancreas show no acute findings. There is mild adrenal limb thickening. The renal nephrograms are symmetric. There is minor renal cortical scarring bilaterally. A tiny left renal cyst is present. No hydronephrosis is seen. There is a large bilobed cystic mass with some septation within the abdomen asymmetric superiorly on the right though also extending from the pelvis. There is slight mass effect on the inferior liver. This measures approximately 23 x 10 x 20 cm in size. The organ of origin is not entirely clear. There are small retroperitoneal lymph nodes. No ascites is present. The small bowel loops are not dilated. There is stool along the colon. The stomach is decompressed. There is levoscoliotic curvature and degenerative changes at the spine. Images through the pelvis show no dilated small bowel. There is mild stool at the rectosigmoid colon. No diverticular disease is identified. The uterus is dextroverted. There is a potential almost 3 cm left adnexal cyst. The urinary bladder is empty, precluding evaluation. The above described cystic abdominopelvic mass starts just above the bladder and uterus. It might be arising from an ovary. There is no ascites. There is a lobulated hypodensity that may be cystic or necrotic at the left groin measuring 4 cm. Atherosclerotic plaque is seen at the aorta and iliac and some of the visceral arteries. There is no aortic aneurysm or dissection. The proximal celiac artery is not well visualized. There is also some narrowing at the proximal superior mesenteric and both renal arteries, greater on the right. A short segment of prominent stenosis is seen near the bifurcation of the left common iliac artery. There is also stenosis at the origin of the internal iliac artery on both sides. There is a short segment of stenosis at the mid right and distal left external iliac arteries. Soft and calcified plaque is present along the superficial femoral arteries. A long segment of the superficial femoral artery on the right appears to be thrombosed. The left shows intermittent mild luminal narrowing. The deep femoral arteries show normal opacification. There is reconstitution of the distal superficial femoral artery on the right at Placido's canal. The popliteal vessels are opacified through the trifurcation and down the lower legs on both sides. CT/CT angio abd aorta runoff IMPRESSION: ATHEROSCLEROTIC DISEASE WITH SEGMENTS OF LUMINAL NARROWING INVOLVING THE VISCERAL, ILIAC AND FEMORAL ARTERIES WITH LONG SEGMENT OF OCCLUSION INVOLVING THE SUPERFICIAL FEMORAL ARTERY ON THE RIGHT. LARGE LOBULATED COMPLICATED CYSTIC MASS INVOLVING THE ABDOMEN AND PELVIS. THE ORGAN OF ORIGIN IS UNCERTAIN HOWEVER POSSIBLY RIGHT OVARIAN. 3 CM LEFT OVARIAN CYST. 4 CM LOBULATED, POTENTIALLY CYSTIC OR NECROTIC STRUCTURE AT THE LEFT GROIN. NO BOWEL OR URINARY TRACT OBSTRUCTION. Impression dictated by: Alanna Mendez M.D. 02/15/2025 11:35 AM Dictation Location: [place] [id number] Electronically authenticated by: [id number] Y Date: 02/15/2025 11:35
[2025-02-15 09:16] LABS: Estimated GFR (African America 59 (>=60 mL/min/1.73m^2); Estimated GFR (Non-African Ame 49 (>=60 mL/min/1.73m^2)
== END 2025-02-15 08:56 | disposition home or self-care (01) ==
LOC: LAB 08:55
PROVIDERS: PCP Family Medicine; Visit Provider Internal Medicine Cardiovascular Disease
DX: R79.89 Other specified abnormal findings of blood chemistry (principal); I73.9 Peripheral vascular disease, unspecified; N83.202 Unspecified ovarian cyst, left side
CPT/HCPCS: 36415; 75635; 82565; Q9967

== ENCOUNTER 2025-02-25 23:31 | Emergency (ER) | payer OTHER, SELFPAY ==
--- OUTSIDE RECORDS SUMMARY | 2025-02-15 10:31 | XMS_ITS | Continuity of Care Document ---
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 Name Role Phone Krista Breonna DO Primary Care Provider Breonna Velasco DO Attending Provider Johnathan Fish Attending Provider Care Teams Patient Care Team Team Status: Active Member Role/Relationship Status Dates Breonna Krista , DO Primary Care Provider Active Visit Care Team Team Status: Inactive Member Role/Relationship Status Dates Breonna Krista , DO Primary Care Provider Active S tart: February 08, 2025 End: February 08, 2025Jessica Krista , DOAttending ProviderActiveStart: February 08, 2025 End: February 08, 2025 Patient Care Team Team Status: Active Member Role/Relationship Status Dates Breonna Krista , DO Primary Care Provider Active S tart: February 15, 2025 Johnathan FishAttending ProviderActiveStart: February 15, 2025 Patient Care Team Team Status: Inactive Member Role/Relationship Status Dates Breonna Krista , DO Primary Care Provider Active S tart: February 15, 2025 End: February 15, 2025Jessica Krista , DOAttending ProviderActiveStart: February 15, 2025 End: February 15, 2025 Chief Complaint and Reason for Visit Chief Complaint Admit Date Establish Care/Hosp FollowUp February 082024 10:58am Reason for Visit Admit Date Anxiety February 08, 2025 10:58am Hyperlipidemia February 08, 2025 10:58am Hypertension February 08, 2025 10:58am NSTEMI (non-ST elevated myocardial infar ction) February 08, 2025 10:58am Smoker February 08, 2025 10:58am Allergies, Adverse Reactions, Alerts Allergen Type Severity Reaction Last Updated Verified Status No Known Allergies Allergy Unknown February 15, 2025 2:47pmYesActive Social History Smoking Status Status Start Date End Date Date of Observa tion Smokes tobacco daily (finding) February 08, 2025 11:17am Observation Status Observation Response Date of Response Legal Sex [facility] (finding) [facility] 1960 Family History Relationship Condition Age at Onset Recorded Date/T marco a mother Malignant neoplasm Unknown Problems Active Problems Problem Diagnosis/Recorded Date Onset Date Stat us Anxiety February 08, 2025 11:14am Unknown Active Hyperlipidemia February 08, 2025 11:14am Unknown Active NSTEMI (non-ST elevated myoc ardial infarction) February 08, 2025 12:56pm Unknown Active Hypertension February 08, 2025 11:14am Unknown Active Smoker February 08, 2025 12:57pm Unknown Active Medications Medication Status Dose Units Route Directions Qty Days Refills S tart Date Stop Date End Date Reason(s) Instructions Adherence Losartan 50 mg tablet Active 100 MG PO Daily February 08, 2025 12:00amComplies with drug therapyAtorvastatin 40 mg tablet Uuxqwh20MHMLPdebtKrmhabak 17th, 2025 12:00amComplies with drug therapyMetoprolol Succinate 50 mg tablet extended release 24 pyOpnpdc03GJDRCsviiCsffkeqf 17th, 2025 12:00amComplies with drug therapyClopidogrel 75 mg mwshmzCcjyfi63YVKTGlrjl February 08, 2025 12:00amComplies with drug therapySpironolactone 25 mg tablet Ftbfdvdlgfci45.5MGPODailyAt[facility]2024 12:00amNovember 2024 11:48am Hydroxyzine Hcl 25 mg adcxjiZhmtff56PHCNSonkc times daily as neededFebruary 08, 2025 12:00amComplies with drug therapyAspirin 81 mg edfalsKnypvt42PYYP DailyFebruary 08, 2025 12:00amComplies with drug therapy Relevant Diagnostic Tests and/or Laboratory Data Laboratory Results Test Collection Date/Time Result Date/Time Result Interpretation Reference Range Result Comment Performing Site Creatinine February 15, 2025 9:00am February 15, 2025 9:00am 1.12 mg/dL Above high normal 0.55-1.02 Estimated GFR ()February 15, 2025 9:00amNove2024 9:96kg65Bqidz low normal>=60 mL/min/1.73m 2Estimated GFR (Non- February 15, 2025 9:00amNove2024 9:55du39Nojhj low normal>=60 mL/min/1.73m 2 Vital Signs Vital Reading Result Reference Range Collection Date/Time Height 62 [in_i] February 08, 2025 11:11hxBrwehd27.25 kgFebruary 08, 2025 11:05amHeart Rate73 /mto42-934VbmuplubFebruary 08, 2025 11:05amRespiratory rate16 /ohv25-34LyhdxudeFebruary 08, 2025 11:05amOxygen saturation by Pulse digcmweu15 %95-100February 08, 2025 11:05amBP Bhhjrwmp209 mm[Hg]100-140February 08, 2025 11:05amBP Uqckjzuan87 mm[Hg]60-100February 08, 2025 11:05amBMI (Body Mass Index)20.6 kg/y1FpoipmxdFebruary 08, 2025 11:84ntXvkrvx19 [in_i]February 15, 2025 2:94qvSsyqfu66.61 kg February 15, 2025 2:44pmHeart Rate77 /mie46-621EnatvpujFebruary 15, 2025 2:44pm Respiratory rate20 /yza55-65EmupniqgFebruary 15, 2025 2:44pmOxygen saturation by Pulse lfzwdurg57 %95-100February 15, 2025 2:44pmBP Khfeimpo774 mm[Hg]100-140 February 15, 2025 2:44pmBP Xdrdbrtxk10 mm[Hg]60-100February 15, 2025 2:44pm BMI (Body Mass Index)21.2 kg/y8NmrhrssaFebruary 15, 2025 2:44pm Advance Directives Advance Directive Response Recorded Date/ Time Advance Directives No January 3:58pm Insurance Providers Guarantor Dulce Fink Address [address] [place] [id number] Info.Home Phone: Coverage Status Update:2025 Payer Group Member ID Coverage Type Subscriber Relationship to Subscriber Effective Date Expiration Date [employer] [id number] Sherman Id: [id number] [address] [facility] [address] Home Phone: Email: [email or web address] Hall [facility] [email or web address] Sherman Id: [id number] [address] [facility] [address] Home Phone: Email: [email or web address] Encounters Encounter Location(s) Arrival/Admit Date Discharge/Departure Date Discharge/Departure Disposition Provider(s) Departed Physician/ Provider Office Visit -[facility] [place] February 08, 2025 10:58am February 08, 2025 11:51am Discharged to home care or self care (routine discharge) Breonna Velasco DO Non-patient / Non-visit -[facility] 2024 9:00am Johnathan Overton Physician/Provider Office Visit-[facility] Family Medicine [facility]2024 2:40pmNov2024 3:29pmDischarged to home care or self care (routine discharge)Breonna Velasco DO Recent Diagnosis Onset Date Admit Date Anxiety Unknown February 08 10:58am Hyperlipidemia Unknown February 08 10:58am Hypertension Unknown February 08 10:58am NSTEMI (non-ST elevated myocardial infarction) U nknown February 08, 2025 10:58am Smoker Unknown February 08 10:58am Assessments Diagnosis Onset Date Resolution Status Admit Date Anxiety acuteFebruary 08, 2025 10:58amHyperlipidemiaacuteNov2024 10:58am HypertensionacuteFebruary 08, 2025 10:58amNSTEMI (non-ST elevated myocardial infarction)acuteFebruary 08, 2025 10:58amSmokeracuteFebruary 08, 2025 10:58am Plan of Treatment Author Breonna Velasco [facility] 2024 12:58pmcontinue metoprolol, losartan; stop spironolactone; please check BP daily and bring log to next visit. Will get labs from hospital visit. continue Lipitor for preventative continue Vistaril for now, metoprolol should also help; patient does not want daily medication. May consider buspar in the future. In the setting of risk factors, will need Stress test, referral to [facility] Cardiology placed. Continue aspirin and plavix for now. Will get hospital records to see what testing was completed. plans to stop smoking. Get hospital records; referral to [facility] Cardiology for stress test and further plan of care; return to clinic 2-3 weeks and further address BP and anxiety. Future Tests Future scheduled test information is unavailable Pending Tests Pending diagnostic test information is unavailable Future Visits Future appointment information is unavailable Future Procedures Future procedure information is unavailable Future Medications Future medication information is unavailable Patient Instructions Patient instructions are unavailable
[2025-02-25 23:37] VITALS: BP 222/86; PULSE 67; TEMP 36.5; O2SAT 98; BMI 20.2
[2025-02-25 23:39] VITALS: O2SAT 98
[2025-02-25 23:40] VITALS: O2SAT 98
[2025-02-25 23:41] VITALS: BP 222/86; O2SAT 99
[2025-02-25 23:42] VITALS: BP 222/86; O2SAT 100
--- NOTE | 2025-02-25 23:44 | ECG_ITS ---
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 Measurements Intervals Emerson Rate: 61 P: 60 CO: 176 QRS: 36 QRSD: 78 T: 42 QT: 428 QTc: 431 Interpretive Statements 1100 Sinus rhythm 9110 normal ECG Compared to ECG 01/31/2025 05:51:36 No significant changes Electronically Signed On 02-26-2025 21:52:36 EST by SRIDHAR MEDELLIN M.D.
[2025-02-25 23:50] VITALS: PULSE 64; O2SAT 99
[2025-02-26] VITALS (19 sets, daily range): BP systolic 145–223; BP diastolic 55–99; PULSE 57–68; O2SAT 99
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
--- OUTSIDE RECORDS SUMMARY | 2025-02-26 00:16 | XMS_ITS | Clinical Summary ---
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 Role Phone Unavailable Primary Care Provider Unavailabl e Encounters DateTypeDepartmentCare GkxmBvmsiexdrac62/10/2025Orders Only [place] [address] [place] [address] Glory Servin MA Elevated troponin (Primary Dx); PVD (peripheral vascular disease)from Last 3 Months Social History Tobacco UseTypesPacks/DayYears UsedDateSmoking Tobacco: Never Assessed CommentsUnknownSex and Gender InformationValueDate RecordedSex Assigned at Not on fileLegal VqyZtgpuv28/29/2022 11:05 PM EDTGender IdentityNot on file Sexual OrientationNot on file Plan of Treatment DateTypeDepartmentCare Team (Latest Contact Info)Eqarsgdrotd45/17/2025 11:20 AM ESTOffice Visit [facility] [address] [place] [address] Charlie Fish MD [address] [place] [address] Health MaintenanceDue DateLast DoneCommentsCT Csjsjmmytvlq08/14/1961Colonoscopy 1960olorectal Cancer Zcbanobds55/14/1961FIT-DNA1960FIT1960 FOBT1960Medicare Initial Physical (IPPE)1960Yqrqvdhqzqlvr32/14/1961 Depression Izsxepzfv55/14/1973Pneumococcal Vaccine: Pediatrics (0 to 5 Years) and At-Risk Patients (6 to 64 Years) (1 of 2 - PCV)1979Pap Smear1981 Adult Izncwcs0305/08/1982Cervical Cancer Oxsdkscum57/14/1991HPV/Emgqkz0505/08/1990 Dmootdiba98/14/2001Zoster Vaccines (1 of 2)2010COVID-19 Vaccine (1 - 2024- season)2024Influenza Vaccine (#1)2024HIB VaccinesAged OutNo longer eligible based on patient's age to complete this topicHPV VaccinesAged OutNo longer eligible based on patient's age to complete this topicIPV Vaccines Aged OutNo longer eligible based on patient's age to complete this topic Meningococcal B VaccineAged OutNo longer eligible based on patient's age to complete this topicMeningococcal VaccineAged OutNo longer eligible based on patient's age to complete this topicRotavirus VaccinesAged OutNo longer eligible based on patient's age to complete this topic Insurance
[2025-02-26 00:24] LABS: Alanine Aminotransferase 19 U/L (14-59); Albumin Globulin Ratio 0.7; Albumin Level 3.4 g/dL (3.4-5.0); Alkaline Phosphatase 93 U/L (46-116); Anion Gap 12.4; Aspartate Amino Transferase 19 U/L (15-37); Blood Urea Nitrogen 12.0 mg/dL (7.0-18.0); Calcium 9.7 mg/dL (8.5-10.1); Carbon Dioxide 26.4 mmol/L (21.0-32.0); Chloride 103 mmol/L (98-107); Estimated GFR (African America >60 (>=60 mL/min/1.73m^2); Estimated GFR (Non-African Ame 59 (>=60 mL/min/1.73m^2); Globulin 4.7 g/dL; Glucose 101 mg/dL (74-106); Lipase 69.0 U/L (16.0-77.0); Potassium 3.8 mmol/L (3.5-5.1); Sodium 138 mmol/L (136-145); Total Protein 8.1 g/dL (6.4-8.2)
[2025-02-26 00:27] LABS: Hematocrit 41.0 % (36.0-48.0); Hemoglobin 13.4 g/dL (12.0-16.0); Immature Granulocytes Abs Auto 0.03 10^3/uL (0.00-0.03); Immature Granulocytes Pct Auto 0.4 % (0.0-0.5); Lymphocytes Absolute Auto 2.0 10^3/uL (1.2-3.8); Mean Corpuscular HGB Conc 32.7 g/dL (29.9-35.2); Mean Corpuscular Hemoglobin 29.9 pg (26.7-34.0); Mean Corpuscular Volume 91.5 fL (81.0-99.0); Platelet Count 260 10^3/uL (150-450); Red Blood Count 4.48 10^6/uL (4.20-5.40); White Blood Count 8.2 10^3/uL (4.0-11.0)
[2025-02-26] MEDS: LORAZEPAM 0.5 MG TABLET PO (00:32)
[2025-02-26] MEDS: 0.9 % SODIUM CHLORIDE 1,000 ML 125 ML IV (00:32)
[2025-02-26] MEDS: 0.9 % SODIUM CHLORIDE 500 ML IV (00:33)
[2025-02-26] MEDS: HYDRALAZINE HCL 20 MG/ML VIAL 10 MG IVP (00:54)
== END 2025-02-26 02:33 | disposition home or self-care (01) ==
PROVIDERS: Emergency Provider Emergency Medicine; PCP Family Medicine
DX: I10 Essential (primary) hypertension (principal); R79.89 Other specified abnormal findings of blood chemistry; F41.1 Generalized anxiety disorder; F17.200 Nicotine dependence, unspecified, uncomplicated; T50.995A Adverse effect of other drugs, medicaments and biological substances, initial encounter
CPT/HCPCS: 36415; 80053; 83690; 84484; 85025; 93005; 96374; 96375; 99284; J0360; J2405